=== PATIENT | female | born 1940 | race Caucasian/White ===

== ENCOUNTER 2019-02-20 12:58 | Inpatient (IN) ==
--- NOTE | 2019-02-20 13:49 | Diag Imaging Result Doc PS360 ---
EXAM: XRAY HIP UNILATERAL LT - 02/20/2019 HISTORY: fall TECHNIQUE: Left hip two views COMPARISON: 07/26/2011 portable KUB abdomen FINDINGS: There is fracture at the proximal aspect of the left femoral neck. There is no dislocation seen. IMPRESSION: Fracture of left femoral neck. Electronically signed by Fernandez Moya 02/20/2019 1:47 PM
--- NOTE | 2019-02-20 13:51 | Diag Imaging Result Doc PS360 ---
EXAM: KNEE 3 VIEWS LEFT - 02/20/2019 HISTORY: fall TECHNIQUE: Left knee three views COMPARISON: None. FINDINGS: There is apparent chondrocalcinosis. There is no fracture or dislocation identified. IMPRESSION: No evidence of fracture or dislocation. Electronically signed by Fernandez Moya 02/20/2019 1:49 PM
--- NOTE | 2019-02-20 13:53 | Diag Imaging Result Doc PS360 ---
EXAM: ANKLE COMPLETE LEFT - 02/20/2019 HISTORY: fall TECHNIQUE: Left ankle three views COMPARISON: None. FINDINGS: There is no fracture or dislocation identified. IMPRESSION: No evidence of fracture or dislocation. Electronically signed by Fernandez Moya 02/20/2019 1:50 PM
--- NOTE | 2019-02-20 13:55 | Diag Imaging Result Doc PS360 ---
EXAM: WRIST COMPLETE LEFT - 02/20/2019 HISTORY: fall TECHNIQUE: Left wrist three views COMPARISON: 02/05/2018 left hand FINDINGS: There is no definite fracture identified. There is no dislocation seen. There are substantial osteoarthritic changes at the first carpometacarpal joint. IMPRESSION: No definite fracture or dislocation. If occult fracture is suspected clinically, follow-up exam in about one week is recommended. Electronically signed by Fernandez Moya 02/20/2019 1:52 PM
[2019-02-20] MEDS ORDERED: NS 1,000 ML IV ONE (14:15)
[2019-02-20] MEDS ORDERED: MORPHINE IV ONE (15:10)
[2019-02-20] MEDS ORDERED: MORPHINE IV PRN (15:11)
[2019-02-20] MEDS ORDERED: NORCO-7.5 PO PRN (15:16)
[2019-02-20] MEDS ORDERED: ZOFRAN IV PRN (15:16)
[2019-02-20] MEDS ORDERED: TYLENOL PO PRN (15:16)
[2019-02-20 15:19] LABS: BASO# 0.04 X1000 (0.0-0.2); BASO% 0.5 % (0.0-0.8); EOS# 0.03 X1000 (0.0-0.7); EOS% 0.4 % (0.0-10.0); HEMATOCRIT 35.1 % (37.0-47.0); HEMOGLOBIN 10.8 g/dL (12.0-16.0); IMM GRAN# 0.01 X1000 (0.0-0.04); IMM GRAN% 0.1 % (0.0-0.5); LYMPH# 1.45 X1000 (1.2-3.4); LYMPH% 18.6 % (20.5-51.1); MCH 25.2 PG (27-31); MCHC 30.8 g/dL (33-37); MONO# 0.58 X1000 (0.11-0.59); MONO% 7.4 % (1.7-9.3); MPV 11.8 FL (7.4-10.4); NEUT# 5.68 X1000 (1.4-6.5); PLT 203 X1000 (130-400); RBC 4.28 XMIL (4.2-5.4); RDW 14.7 % (11.5-14.5); WBC 7.79 X1000 (4.8-10.8)
[2019-02-20 15:39] LABS: AGAP 14; BUN 11 mg/dL (8-22); CALCIUM 8.8 mg/dL (8.8-10.2); CHLORIDE 103 mmol/L (98-107); COSMO 281; CREATININE 0.7 mg/dL (0.5-0.9); ESTIMATED GFR > 60; GLUCOSE 103 mg/dL (70-104); POTASSIUM 4.3 mmol/L (3.5-5.1); SODIUM 141 mmol/L (136-145); TCO2 25 mmol/L (25-35)
--- NOTE | 2019-02-20 16:01 | HISTORY AND PHYSICAL ---
PRIMARY CARE PROVIDER: Dr. Guillermo Clarke. CHIEF COMPLAINT: Fall with left hip pain. HISTORY OF PRESENT ILLNESS: Ms. Teri Vazquez is a 78-year-old female with a medical history of Parkinson's diagnosed 5 years ago, anxiety, depression, insomnia, history of kidney stones. She states that around lunchtime they were going to [employer] to have lunch. She got out of the car, stepped wrong and fell on her left side. She does have the occasional off-balance sensation but denies having any other falls. She states that on December 17 she had to have back surgery, and she went through physical therapy for about a month but really personally felt like she really did not have any issues with strength and it was just a little bit of her balance that she had issues with. She denies getting dizzy or lightheaded. She denies any other symptoms. She states she did not lose consciousness--she just stepped wrong. So, she will be admitted to [facility] where Dr. De Santiago will see her for surgical intervention. PAST MEDICAL HISTORY: 1. Anxiety. 2. Depression. 3. Bladder infections. 4. History of kidney stones with lithotripsy. 5. Parkinson's diagnosed about 5 years ago. 6. Insomnia. SURGICAL HISTORY: 1. Hysterectomy. 2. Benign akin tumors removed. 3. Breast implants placed. 4. Lithotripsy. 5. Cholecystectomy. 6. Back surgery December 17. SOCIAL HISTORY: Denies tobacco, alcohol or illicit drug use. She lives at home with her . She does not need any assistive devices to walk. FAMILY HISTORY: She says that there are no medical conditions that run on either side of her family. ALLERGIES: She states she has allergy to prednisone, but it just makes her go crazy. She apparently in the past has had an allergy to Keflex and Feldene. HOME MEDICATIONS: 1. Lexapro 10 mg p.o. daily. 2. Carbidopa/levodopa 25/100 p.o. t.i.d. 3. Temazepam 30 mg p.o. nightly. REVIEW OF SYSTEMS: A 14-point review of systems are complete and all are negative except for those mentioned above in HPI. PHYSICAL EXAMINATION: VITAL SIGNS: Temperature 98.1; heart rate 106; respiratory rate 18; blood pressure 133/65; O2 saturation 97% on room air. GENERAL: Ms. Teri Vazquez is a 78-year-old female. She is in no acute distress. She is able to answers questions appropriately. HEENT: Atraumatic, normocephalic. Pupils equal, round, and reactive to light. Extraocular movements intact. Mucous membranes are dry. NECK: Trachea midline. CARDIOVASCULAR: S1, S2. Tachycardic rate and rhythm. No rubs, gallops, or murmurs. No lower extremity edema, +2 dorsalis and radial pulses. Negative JVD or carotid bruits. PULMONARY: Clear to auscultate bilateral breath sounds. No accessory muscle use or work of breathing noted. GASTROINTESTINAL: Soft, nontender and nondistended. Positive bowel sounds x4. EXTREMITIES: Unable to move the left lower extremity due to the severe pain from the fracture, but otherwise all other extremities are equal with movement and range of motion. NEUROLOGIC: A and O x3. Follows commands. Sensory is intact. SKIN: Warm, dry, intact. There seems to be a little abrasion on the left arm from the fall. LABORATORY DATA: WBC 7000, hemoglobin 10, hematocrit 35, platelet count 203,000. All other labs are pending at this time. IMAGING: Left wrist x-ray: No fracture. Left knee x-ray: No fracture. Left ankle x-ray: No fracture. Left hip x-ray shows fracture of the left femoral neck. ASSESSMENT AND PLAN: 1. Fall with left femoral neck fracture. Mechanical fall, she did not pass out and Dr. De Santiago has been consulted. We will do morphine for pain control, put a David catheter in, get current type and screen and make her n.p.o. after midnight. 2. Parkinson's. We will continue home meds. 3. Insomnia. We will continue her temazepam. 4. Anxiety and depression. We will continue Lexapro. 5. From what labs have come back, she does have some anemia with a hemoglobin and hematocrit of 10 and 35. So, we will perform anemia lab workup. 6. DVT prophylaxis. Low-dose heparin subcu twice a day. Dictated by SHERLY Ramesh for Ky Thompson MD Addendum: Patient seen and examined by myself. Agree with SHERLY note. It reflects my assessment and plan. Patient is being admitted to hospital for left hip fracture so will transfer this patient to [facility] to be seen by Orthopedic for surgical fixation and will go from there. Will continue with medications for Parkinson disease. cc: SHERLY Ramesh MD MTDD
[2019-02-20 16:02] LABS: IRON SATURATION 12 %; TIBC 344 ug/dL; TOTAL IRON 42 ug/dL (49-151); UNBOUND IRON 302 ug/dL (112-346)
[2019-02-20 16:32] LABS: INR 0.96; PROTIME 13.3 Seconds (11.0-16.0)
[2019-02-20 16:33] LABS: PTT 27.4 Seconds (22.3-41.8)
--- NOTE | 2019-02-20 19:14 | EKG Report ---
Test Performed on : 02/20/2019 2:31:18 PM Test Reason : HIP FX Blood Pressure : / mmHG Vent. Rate : 080 BPM Atrial Rate : 080 BPM P-R Int : 080 ms QRS Dur : 080 ms QT Int : 392 ms P-R-T Axes : 063 061 -42 degrees QTc Int : 452 ms Sinus rhythm. with short OH with premature supraventricular complexes. ST & T wave abnormality, consider inferior ischemia Abnormal ECG No previous ECGs available Unconfirmed Result
[2019-02-20] MEDS: HEPARIN SUBQ SCH (22:23)
[2019-02-20] MEDS: RESTORIL PO SCH (22:24)
[2019-02-20] MEDS: SINEMET 25/100 PO SCH (22:28)
[2019-02-20 23:25] LABS: FERRITIN 31 ng/mL (13-150)
[2019-02-21] MEDS: SINEMET 25/100 PO SCH ×3 (05:01→21:50)
[2019-02-21 06:14] LABS: BASO# 0.05 X1000 (0.0-0.2); BASO% 0.8 % (0.0-0.8); EOS% 1.6 % (0.0-10.0); HEMATOCRIT 32.2 % (37.0-47.0); HEMOGLOBIN 9.8 g/dL (12.0-16.0); LYMPH# 1.11 X1000 (1.2-3.4); LYMPH% 17.2 % (20.5-51.1); MCH 25.2 PG (27-31); MCHC 30.4 g/dL (33-37); MCV 82.8 FL (81-99); MONO# 0.56 X1000 (0.11-0.59); MONO% 8.7 % (1.7-9.3); MPV 11.8 FL (7.4-10.4); NEUT# 4.62 X1000 (1.4-6.5); NEUT% 71.7 % (42.2-75.2); PLT 177 X1000 (130-400); RBC 3.89 XMIL (4.2-5.4); RDW 14.6 % (11.5-14.5); WBC 6.44 X1000 (4.8-10.8)
[2019-02-21 06:44] LABS: AGAP 10; ALB/GLOB RATIO 1.3; ALBUMIN 3.6 g/dL (3.5-5.0); ALKALINE PHOSPHATASE 100 U/L (32-104); BUN 10 mg/dL (8-22); CALCIUM 8.6 mg/dL (8.8-10.2); CHLORIDE 107 mmol/L (98-107); COSMO 283; CREATININE 0.6 mg/dL (0.5-0.9); ESTIMATED GFR > 60; GLUCOSE 116 mg/dL (70-104); GOT 26 U/L (10-30); GPT < 5 U/L (10-36); MAGNESIUM 1.9 mg/dL (1.5-2.7); POTASSIUM 3.9 mmol/L (3.5-5.1); SODIUM 142 mmol/L (136-145); TCO2 25 mmol/L (25-35); TOTAL BILIRUBIN 0.79 mg/dL (0.20-1.00); TOTAL PROTEIN 6.4 g/dL (6.3-8.3)
[2019-02-21] MEDS ORDERED: DIPRIVAN 1% ONE (07:42)
[2019-02-21] MEDS ORDERED: XYLOCAINE-MPF 2% ONE (07:43)
[2019-02-21] MEDS ORDERED: ZOFRAN ONE (07:43)
--- NOTE | 2019-02-21 07:59 | ORTHOPAEDICS CONSULTATION ---
DATE: 02/21/2019 CHIEF COMPLAINT: Left hip pain. HISTORY OF PRESENT ILLNESS: Ms Vazquez is a 78-year-old female who fell yesterday and landed on her left hip. She denies being dizzy. Unfortunately, she was getting out of her car and going in to have some lunch and she sort of fell right off the curb. Most of her pain is in the left hip. She does have a little bit of left wrist pain as well She was unable to bear weight and they brought to the emergency department and they diagnosed her with a hip fracture and admitted her per the Hospitalist service. PAST MEDICAL HISTORY: Anxiety and depression. Bladder infections. Parkinson's. PAST SURGICAL HISTORY: Hysterectomy, lithotripsy, breast augmentation, and spine surgery. SOCIAL HISTORY: She denies tobacco or alcohol use. She lives with her . FAMILY HISTORY: Negative for any anesthesia related events. ALLERGIES: She says she has an allergy to prednisone but it actually just tends to make her crazy. HOME MEDICATIONS: Per the medical record. REVIEW OF SYSTEMS: Positive for this left hip pain. All other systems are essentially negative. PHYSICAL EXAMINATION: General: An elderly appearing female. She is in no acute distress. Head and Neck: Normocephalic, atraumatic. Respirations: Nonlabored breathing. Cardiovascular: Regular rate. Abdomen: Nondistended. Extremities: Left lower extremity exam shows tenderness to palpation at the hip. I marked the hip as the correct surgical site. She has good dorsiflexion and plantar flexion at the foot and good sensation to light touch to the toes. RADIOGRAPHS: Several views of the left hip show a valgus impacted femoral neck fracture. ASSESSMENT: Left femoral neck fracture. PLAN: I discussed with Ms. Vazquez about closed reduction and percutaneous pinning of this left hip. I went over with her the procedure, risks, benefits, and potential complications. Risks include but are not limited to infection, wound healing problems, damage to nerves, arteries, veins, numbness, malunion, nonunion, hardware related issues, continued pain, DVT, and anesthesia related risks. After discussing these with the patient, she expressed understanding and wished to proceed, so we will get everything set up for this morning. She is n.p.o. and all questions were answered. cc: Damian De Santiago MD
[2019-02-21] MEDS: HEPARIN SUBQ SCH ×2 (08:01→21:50)
[2019-02-21] MEDS ORDERED: KEFZOL 1 GM/D5W 2 GM/100 ML IVPB ONE (08:05)
[2019-02-21] MEDS ORDERED: FENTANYL ONE (08:05)
[2019-02-21] MEDS ORDERED: EPHEDRINE ONE (08:41)
[2019-02-21] MEDS ORDERED: OFIRMEV 1000 MG/ISOTONIC SOLN 1,000 MG/100 ML BOTTLE ONE (08:41)
[2019-02-21] MEDS ORDERED: MORPHINE IV PRN (09:00)
[2019-02-21] MEDS: LEXAPRO PO SCH (10:04)
[2019-02-21] MEDS: KEFZOL 1 GM/D5W 1 GM/50 ML IVPB IV SCH ×2 (10:04→17:32)
--- NOTE | 2019-02-21 14:49 | OPERATIVE NOTE ---
PROCEDURE DATE: 02/21/2019 PREOPERATIVE DIAGNOSIS: Left valgus impacted femoral neck fracture. POSTOP DIAGNOSIS: Left valgus impacted femoral neck fracture. PROCEDURE: Left closed reduction, percutaneous pinning hip fracture. SURGEON: Dr. Damian De Santiago. SPOOL SALVAGER: None. ANESTHESIA: General with LMA. BLOOD LOSS: 50 mL. IMPLANTS: Synthes 7.3 mm cannulated screws x3, 2 of them were titanium, 1 of them stainless steel. DISPOSITION: To PACU hemodynamically stable. INDICATION FOR PROCEDURE: Ms. Vazquez 78-year-old female who fell and broke her hip yesterday. She was admitted per the hospitalist service. I discussed with her about operative intervention to fix this left femoral neck fracture. She expressed understanding and wished to proceed. DESCRIPTION OF PROCEDURE: Ms. Vazquez was identified in the preop holding area. The left hip was marked as correct surgical site and that was done on the floor. She was then wheeled to the operating room, placed supine on the operating table, bony prominences well padded. She was induced under general anesthesia. LMA was placed. She was placed on the traction bed but no traction was applied. Left hip was prepped with chlorhexidine gluconate scrub and then ChloraPrep and draped in normal sterile fashion. Surgical pause was performed. We identified the correct patient, correct side and the correct procedure. Preop antibiotics were given. We confirmed a good reduction of the hip using fluoroscopic imaging, AP and lateral views looked to be good, is still valgus impacted not displaced. I then made an incision on the lateral aspect of the hip. Dissection was carried down through the IT band. I used the guide wires under fluoroscopic imaging and got my most inferior guidewire 1st being sure not to go below the lesser troch level was able to get it in the head. She did have a little bit retroversion so we did half to angle and started just a little bit anterior on the femur to get it more in the center of the head. I felt we got a really good position of that inferior screw. I then put 2 superior screws 1 anterior 1 posterior, everything checked out well under fluoroscopic imaging. I then drilled and then placed those screws and each 1 of them actually had really good bite and then removed the guide wires. Final images were taken which showed we had a good reduction of the femoral neck, had a good position of all our screws as well. We then closed the fascia with 2-0 Vicryl, 2-0 Vicryl for the subcu and brando on the skin. Adaptic, 4 x 4s, island dressing was applied. She was then awoke from general anesthesia, moved her own bed and taken to the PACU in stable condition. Postop she will be touchdown weightbearing left lower extremity. Physical therapy start working with her and I will see her in the morning. cc: Damian De Santiago MD
--- NOTE | 2019-02-21 15:56 | PROGRESS NOTE ---
DATE: 02/21/2019 SUBJECTIVE: This patient is status post percutaneous pinning of the left hip, she came in with a left femoral neck fracture. At this moment she is stable, she is completely alert and oriented x3, family members at the bedside, her only complaint at this moment is left lower extremity cramps but at the moment of my physical exam she it was resolved. OBJECTIVE: Vital Signs: Temperature 98.2 degrees, pulse 76, respiratory rate 15, blood pressure 111/48, oxygen saturation 99 on 2 L of nasal cannula. HEENT: Head normocephalic. No trauma. PERRLA. Neck: Supple. No JVD. No masses. Central trachea. Chest: Clear to auscultation. No wheezing. No rales. Abdomen: Soft, nontender, nondistended. No hepatosplenomegaly. Extremities: Left hip pain. There is a new dressing that looks clean, dry, she is able to move her lower extremities. Pulses are present. Neurological: At this moment this patient is alert, she is oriented x3. No focal deficits. LABORATORY: WBC 6.4, hemoglobin 9.8, hematocrit 32.2, platelets 177,000. Sodium 142, potassium 3.9, chloride 107, bicarbonate 25, BUN 10, creatinine 0.6, glucose 116, calcium 8.6, magnesium 1.9, albumin 3.6. ASSESSMENT AND PLAN: 1. Left femoral neck fracture status post percutaneous pinning of the left hip, this patient seems to be stable, she tolerated well the procedure. We will continue with pain management, she is completely alert and oriented x3. Hopefully this patient can be discharged at the beginning of the week to a rehab center, this has been already discussed with the patient. 2. History of Parkinson disease. Continue home medication. 3. Insomnia. Continue with her temazepam. 4. Anxiety and depression. Continue with Lexapro. 5. Anemia, stable. Will monitor. 6. Deep vein thrombosis prophylaxis with heparin twice a day. cc: Pavel Zuniga MD
[2019-02-21] MEDS: RESTORIL PO SCH (21:50)
[2019-02-21] MEDS: PERIDEX MT SCH (21:50)
[2019-02-21] MEDS: COLACE PO SCH (21:50)
[2019-02-22] MEDS: KEFZOL 1 GM/D5W 1 GM/50 ML IVPB IV SCH (00:13)
[2019-02-22] MEDS: SINEMET 25/100 PO SCH ×3 (05:03→22:34)
[2019-02-22 06:19] LABS: URINE SOURCE CATH
[2019-02-22 06:28] LABS: HEMOGLOBIN 9.6 g/dL (12.0-16.0)
[2019-02-22 06:29] LABS: BILIRUBIN URINE NEGATIVE (NEGATIVE); BLOOD URINE SMALL (NEGATIVE); COLOR YELLOW; GLUCOSE URINE NEGATIVE (NEGATIVE); KETONE URINE TRACE mg/dL (NEGATIVE); LEUKOCYTES URINE TRACE (NEGATIVE); NITRITE URINE NEGATIVE (NEGATIVE); PH URINE 6.5; PROTEIN URINE 30 mg/dL (NEGATIVE); TURBIDITY URINE CLEAR (CLEAR); UROBILINOGEN URINE NORMAL (NORMAL)
[2019-02-22 06:37] LABS: UR EPITHELIAL CELLS <10 /HPF (<10); URINE BACTERIA NEGATIVE /HPF; URINE RBC 20-40 /HPF (<10)
[2019-02-22 06:42] LABS: HEMATOCRIT 31.5 % (37.0-47.0)
[2019-02-22 06:44] LABS: AGAP 7; BUN 8 mg/dL (8-22); CALCIUM 8.5 mg/dL (8.8-10.2); CHLORIDE 101 mmol/L (98-107); COSMO 269; CREATININE 0.7 mg/dL (0.5-0.9); ESTIMATED GFR > 60; GLUCOSE 106 mg/dL (70-104); POTASSIUM 3.9 mmol/L (3.5-5.1); SODIUM 135 mmol/L (136-145); TCO2 27 mmol/L (25-35)
[2019-02-22 07:02] LABS: URINE CASTS NONE SEEN; URINE CRYSTALS NONE SEEN; URINE SMALL ROUND CELLS NONE SEEN; URINE YEAST NONE SEEN
--- NOTE | 2019-02-22 07:47 | ORTHOPAEDICS PROGRESS NOTE ---
DATE: 02/22/2019 SUBJECTIVE: Ms. Vazquez is sitting up at bedside this morning with her feet on the floor. She is actually feeling pretty well. OBJECTIVE: On left lower extremity exam, her dressing is clean, dry, and intact. She is moving very well this morning. She is neurovascularly intact to the left lower extremity. ASSESSMENT: Status post left hip closed reduction and percutaneous pinning. PLAN: I think Ms. Vazquez overall is doing really well. She is going to get up walking with physical therapy today. Then social science teacher will be working on things tomorrow for discharge to rehab. cc: aDmian De Santiago MD
[2019-02-22] MEDS: HEPARIN SUBQ SCH ×2 (08:27→22:34)
[2019-02-22] MEDS: OXY IR PO PRN ×2 (08:27→22:33)
[2019-02-22] MEDS: LEXAPRO PO SCH (08:27)
[2019-02-22] MEDS: PERIDEX MT SCH ×2 (08:27→22:34)
--- NOTE | 2019-02-22 13:41 | PROGRESS NOTE ---
DATE: 02/22/2019 INTERVAL HISTORY: The patient is doing well after surgical repair of left hip fracture. Beginning to ambulate some. Pain well controlled. No new complaints. No acute events overnight. REVIEW OF SYSTEMS: A 12 point review of systems negative except as per Interval History. LABORATORIES: Hemoglobin 9.6, hematocrit 31.5. Sodium 135, glucose 106. VITALS: Temperature maximum 99.4 degrees, pulse 81, respirations 16, blood pressure 126/53, O2 saturation 97% on room air. PHYSICAL EXAMINATION: General: No acute distress. Vitals: As above. HEENT: Normocephalic, atraumatic. Moist mucous membranes. No cervical adenopathy. Cardiovascular: Regular rate and rhythm. No murmurs noted. Pulmonary: Clear to auscultation bilaterally. No wheezing, rales, or rhonchi. Abdomen: Soft, nontender, nondistended. Bowel sounds positive. Extremities: Peripheral pulses intact. No clubbing or cyanosis. Left hip bandaged. Bandaging clean, dry, intact. Neurologic: Cranial nerves grossly intact. No focal deficits identified. Psychiatric: Normal mood and affect. Awake, alert, oriented x3. Skin: No new rashes or lesions identified. Surgical incision as above. ASSESSMENT AND PLAN: 1. Left femoral neck fracture. Status post surgical repair. Patient doing well. Pain well controlled. Hopefully to rehabilitation within the next 24 to 48 hours. 2. Parkinson's. Continue home medications. Well controlled. 3. Insomnia. Continue home temazepam. 4. Situational anxiety and depression. Continue home Lexapro. Appears to be well-controlled. 5. Anemia, stable. Continue to monitor. 6. Hyponatremia, mild, asymptomatic. Monitor but no need for acute intervention at this time.
[2019-02-22] MEDS: COLACE PO SCH (22:34)
[2019-02-22] MEDS: RESTORIL PO SCH (22:34)
[2019-02-23] MEDS: SINEMET 25/100 PO SCH ×3 (05:00→20:17)
[2019-02-23 06:14] LABS: HEMATOCRIT 31.3 % (37.0-47.0); HEMOGLOBIN 9.7 g/dL (12.0-16.0)
[2019-02-23 06:41] LABS: AGAP 11; BUN 6 mg/dL (8-22); CALCIUM 8.7 mg/dL (8.8-10.2); CHLORIDE 101 mmol/L (98-107); COSMO 274; CREATININE 0.6 mg/dL (0.5-0.9); ESTIMATED GFR > 60; GLUCOSE 107 mg/dL (70-104); POTASSIUM 3.5 mmol/L (3.5-5.1); SODIUM 138 mmol/L (136-145); TCO2 26 mmol/L (25-35)
[2019-02-23] MEDS: PERIDEX MT SCH ×2 (08:04→20:17)
[2019-02-23] MEDS: HEPARIN SUBQ SCH ×2 (08:04→20:18)
[2019-02-23] MEDS: LEXAPRO PO SCH (08:05)
--- NOTE | 2019-02-23 12:17 | Diag Imaging Result Doc PS360 ---
EXAM: CHEST-PORTABLE HISTORY: rehab placement TECHNIQUE: Portable upright chest single view COMPARISON: None. FINDINGS: The lungs are well expanded. The heart is not enlarged. The vessels are not distended. There are no infiltrates. No effusion identified. There has been surgery to the lower neck. There are breast implants. IMPRESSION: No acute abnormality. Electronically signed by Heladio Noonan 02/23/2019 12:14 PM
--- NOTE | 2019-02-23 15:12 | PROGRESS NOTE ---
DATE: 02/23/2019 INTERVAL HISTORY: Patient continuing to do well after surgical repair of her left hip fracture. Pain reasonably well controlled. No new complaints. No acute events overnight. REVIEW OF SYSTEMS: Twelve point review of systems negative except as per interval history. LABS: Hemoglobin 9.7, hematocrit 31.3. Sodium 138, potassium 3.5, glucose 107, BUN 6, creatinine 0.6. IMAGING: Chest x-ray: No acute process. VITAL SIGNS: T-max 99.4 degrees, pulse 81, respirations 20, blood pressure 138/57, O2 saturation 98% on room air. PHYSICAL EXAMINATION: General: No acute distress. Vital signs: As above. HEENT: Normocephalic, atraumatic. Moist mucous membranes. No cervical adenopathy. Cardiovascular: Regular rate and rhythm. No murmurs noted. Pulmonary: Clear to auscultation bilaterally. No wheezes, rales, or rhonchi. Abdomen: Soft, nontender, nondistended. Bowel sounds positive. Extremities: Peripheral pulses intact. No clubbing or cyanosis. Left hip bandaged. Bandaging clean, dry, intact. Neurologic: Cranial nerves grossly intact. No focal deficits identified. Psychiatric: Normal mood and affect. Awake, alert, oriented x3. Skin: No new rashes or lesions identified. Surgical incision as above. ASSESSMENT AND PLAN: 1. Left femoral hip fracture, status post surgical repair. Patient doing well. Pain well controlled. Plan on discharge to rehab once bed is available, hopefully within the next 24 hours. 2. Parkinson, well controlled. Continue home medications. 3. Insomnia. Continue home temazepam. 4. Situational anxiety and depression. Continue home Lexapro. 5. Anemia, stable. Continue to monitor. 6. Hyponatremia, mild, asymptomatic, and now resolved. Monitor labs. 7. Deep vein thrombosis prophylaxis. Heparin.
[2019-02-23] MEDS: OXY IR PO PRN (18:35)
[2019-02-23] MEDS: RESTORIL PO SCH (20:17)
[2019-02-23] MEDS: COLACE PO SCH (20:17)
[2019-02-24 06:30] LABS: HEMATOCRIT 31.2 % (37.0-47.0); HEMOGLOBIN 9.6 g/dL (12.0-16.0)
[2019-02-24] MEDS: SINEMET 25/100 PO SCH ×2 (06:43→13:11)
[2019-02-24 07:33] VITALS: BP 117/53
[2019-02-24] MEDS: LEXAPRO PO SCH (08:55)
[2019-02-24] MEDS: HEPARIN SUBQ SCH (08:55)
[2019-02-24] MEDS: PERIDEX MT SCH (08:55)
--- NOTE | 2019-02-24 09:23 | ORTHOPAEDICS PROGRESS NOTE ---
DATE: 02/24/2019 SUBJECTIVE DATA: Ms. Vazquez is doing well. She is sitting up in the bed. Her pain is well controlled. She states she has worked with therapy some. OBJECTIVE: Left lower extremity exam, her incision looks great, there is no erythema or drainage. She is able to dorsiflex and plantar flex the ankle. She has good sensation to the lower limb. She has a 2+ pedal pulse. She is able to do a straight leg raise. ASSESSMENT: Status post left trochanteric femoral nailing. PLAN: Ms. Vazquez is doing well. She is having a little bit of trouble mobilizing. She does have a history of Parkinson's so it is going to take a little bit to work to get her fully mobilized. Physical Therapy is going to work on ambulating with her today. She understands that is the most important part postoperatively for this. It does look like they are planning on her going to rehab, which we agree with. I think a rehab stay would be very beneficial for her. Dr. De Santiago would like to see her in the office in 1 week or 2 weeks from discharge from the hospital, and if there are any questions, Dr. De Santiago would be happy to answer them. Dictated by SHERLY Corona for Damian De Santiago MD cc: SHERLY Corona MD
--- NOTE | 2019-02-24 13:32 | DISCHARGE SUMMARY ---
ADMISSION DATE: 02/20/2019 DISCHARGE DATE: 02/24/2019 DIAGNOSES: 1. Left femoral neck fracture status post closed reduction with percutaneous pinning. 2. Parkinson's, well controlled. 3. Insomnia. 4. Situational anxiety and depression. 5. Anemia, stable. 6. Hyponatremia which is mild, asymptomatic, now resolved. CONSULTATIONS: Dr. Damian De Santiago, Orthopedics. DIAGNOSTICS: 1. Left ankle x-ray revealed no evidence of fracture or dislocation. 2. Left hip revealed fracture of the left femoral neck. 3. Left knee revealed no evidence of fracture or dislocation. 4. Left wrist revealed no definite fracture or dislocation. 5. Chest x-ray revealed no acute abnormality. Lungs are well expanded. Heart is not enlarged. Vessels are not distended. There are no infiltrates. No effusion identified. MICROBIOLOGY: 1. Blood cultures x2 revealed no growth after 48 hours. 2. Urine culture revealed no growth. HOSPITAL COURSE: Ms. Vazquez presented to the emergency room with left hip pain after falling. She was found to have a left femoral neck fracture. She underwent closed reduction and percutaneous pinning on the 21 of February. She has progressed well. Pain has been well controlled. She has been working with physical therapy. She does have a little trouble mobilizing in the setting of recent surgery and Parkinson disease. Thankfully, she is going to [facility] rehab. DISCHARGE PHYSICAL EXAMINATION: Cardiovascular: S1 and S2 are appreciated. Extremities: Calves are nontender bilateral palpation. Peripheral pulses palpable x4 extremities. Pulmonary: Breath sounds are clear. No increased work of breathing noted. Chest rises and falls symmetric with respiration. Chest wall is nontender to palpation. Gastrointestinal: Abdomen is soft, nontender, nondistended with bowel sounds in all 4 quadrants. Neurologic: She is alert and oriented x3. Skin: Warm and dry. DISCHARGE MEDICATIONS: 1. Eliquis 2.5 mg p.o. b.i.d. 2. Sinemet 25/100 two tabs p.o. t.i.d. 3. Lexapro 10 mg p.o. daily. 4. Oxy IR 5 mg p.o. q.3 hours p.r.n. 5. Restoril 15 mg p.o. at bedtime. FOLLOWUP: Dr. Damian De Santiago in 1 to 2 weeks from discharge. DISCHARGE DISPOSITION: She is being discharged in transfer to [facility] in stable condition. Family members present. TIME SPENT: This is a greater than 30 minute discharge. Dictated by SHERLY Lewis for Catarino Isaac MD cc: SHERLY Lewis MD
== END 2019-02-24 14:13 | DRG 481 ==
LOC: P.ED 12:58 → 4N 15:37 → SUATTDRO 15:37
PROVIDERS: ATTEND Internal Medicine
CPT/HCPCS: 51702; 71010; 71045; 73110; 73502; 73562; 73610; 76000; 80048; 80053; 81001; 82550; 82607; 82728; 82746; 83540; 83550; 83605; 83735; 83880; 84484; 85014; 85018; 85025; 85610; 85730; 86850; 86900; 86901; 87040; 87088; 93005; 94761; 96374; 97116; 97161; 97530; 99285; A9270; J0131; J0690; J1644; J2270; J2405; J3010; J7030